=== PATIENT | male | born 1995 | race Caucasian/White ===

== ENCOUNTER 2022-03-29 09:30 | Emergency (ER) | payer SELFPAY ==
[2022-03-29 10:09] LABS: Bilirubin Neg (Negative); Blood, Urine Negative (Negative); Clarity Slightly Cloudy (Clear); Glucose, Urine (Dipstick) Normal (Negative); Ketone, Urine Negative (Negative); Leukocyte Negative (Negative); Nitrite Negative (Negative); Protein, Urine (Dipstick) Negative (Neg-Trace); Urobilinogen Normal mg/dL (Less than 2)
== END 2022-03-29 10:13 | disposition home or self-care (01) ==
LOC: CSHERS 09:30
DX: R11.2 Nausea with vomiting, unspecified (principal); K62.5 Hemorrhage of anus and rectum
CPT/HCPCS: 81003; 99284